=== PATIENT | male | born 1975 | race American Indian/Alaskan Native ===

== ENCOUNTER 2021-03-27 13:07 | Outpatient (CLI) | payer OTHER ==
[2021-03-27] MEDS ORDERED: ALBUTEROL 2.5 MG/3 ML NEBU IH ONE (14:03)
== END 2021-03-27 13:08 | disposition home or self-care (01) ==
LOC: PF 13:07
PROVIDERS: ATTEND Internal Medicine
DX: J44.9 Chronic obstructive pulmonary disease, unspecified (principal); R06.02 Shortness of breath
CPT/HCPCS: 94640; A9270